=== PATIENT | female | born 1960 | race Caucasian/White ===

== ENCOUNTER → 2016-09-15 | Outpatient (CLI) | payer BC ==
[~2016-09-15] MED LIST: B-121000 MCG PO; GLUCOPHAGE500 MG/TAB PO; NORCO 325 MG-51 TAB PO; TYLENOL 500MG500 MG PO; VITAMIN D31000 IU PO; [UNRECOGNIZED DRUG - CODE] PO
== END ==
LOC: MC.RAD 11:29
DX: Z12.31 Encounter for screening mammogram for malignant neoplasm of breast (principal)

== ENCOUNTER → 2016-09-19 | Outpatient (CLI) | payer BC | LOC: MC.RAD 13:21 | DX: N63 Unspecified lump in breast (principal); N64.59 Other signs and symptoms in breast ==

== ENCOUNTER → 2016-09-22 | Outpatient (CLI) | payer BC | LOC: MC.RAD 12:33 | DX: N63 Unspecified lump in breast (principal) ==

== ENCOUNTER 2016-10-09 06:52 | Day surgery (SDC) | payer BC ==
[~2016-10-09] VITALS: Ht 170.2 cm; Wt 80.6 kg
[~2016-10-09 06:52] MED LIST changes: -GLUCOPHAGE500 MG/TAB PO; -NORCO 325 MG-51 TAB PO; -TYLENOL 500MG500 MG PO
[2016-10-09 08:00] VITALS: BP 153/75; PULSE 64; TEMP 97.6
[2016-10-09] MEDS ORDERED: GLUCOPHAGE500 MG/TAB PO (08:08)
[2016-10-09] MEDS ORDERED: TYLENOL 500MG500 MG PO (08:08)
[2016-10-09 13:13] VITALS: BP 121/63; PULSE 75; TEMP 98
[2016-10-09 13:30] VITALS: BP 119/60; PULSE 69
[2016-10-09] MEDS ORDERED: NORCO 325 MG-51 TAB PO (13:32)
[2016-10-09 13:45] VITALS: BP 113/64; PULSE 60
== END 2016-10-09 14:21 | disposition home or self-care (01) ==
LOC: SDCO 06:52 → MC.RAD 07:00 → SDCO 07:00
DX: N62 Hypertrophy of breast (principal); D24.1 Benign neoplasm of right breast; N60.91 Unspecified benign mammary dysplasia of right breast; R92.0 Mammographic microcalcification found on diagnostic imaging of breast; E11.9 Type 2 diabetes mellitus without complications; E78.5 Hyperlipidemia, unspecified; D64.9 Anemia, unspecified; Z86.718 Personal history of other venous thrombosis and embolism; Z85.820 Personal history of malignant melanoma of skin; Z96.651 Presence of right artificial knee joint; Z80.0 Family history of malignant neoplasm of digestive organs
CPT/HCPCS: J0690; J1100; J2250; J2405; J2704; J3010; J7030

== ENCOUNTER → 2016-12-06 | Outpatient (CLI) | payer BC ==
[~2016-12-06] MED LIST changes: +GLUCOPHAGE500 MG/TAB PO; +NORCO 325 MG-51 TAB PO; +TYLENOL 500MG500 MG PO
== END ==
LOC: SUN.DIA 10:49
DX: E11.9 Type 2 diabetes mellitus without complications (principal); E78.5 Hyperlipidemia, unspecified; E66.9 Obesity, unspecified; Z71.3 Dietary counseling and surveillance
CPT/HCPCS: G0109

== ENCOUNTER → 2016-12-13 | Outpatient (CLI) | payer BC | LOC: SUN.DIA 16:41 | DX: E11.9 Type 2 diabetes mellitus without complications (principal); E78.5 Hyperlipidemia, unspecified; E66.9 Obesity, unspecified; Z71.3 Dietary counseling and surveillance | CPT/HCPCS: G0109 ==

== ENCOUNTER → 2016-12-20 | Outpatient (CLI) | payer BC | LOC: SUN.DIA 12-18 08:33 | DX: E11.9 Type 2 diabetes mellitus without complications (principal); E66.9 Obesity, unspecified; Z68.26 Body mass index [BMI] 26.0-26.9, adult; Z71.3 Dietary counseling and surveillance | CPT/HCPCS: G0108; G0109 ==

== ENCOUNTER → 2016-12-27 | Outpatient (CLI) | payer BC | LOC: SUN.DIA 12:57 | DX: E11.9 Type 2 diabetes mellitus without complications (principal); E66.9 Obesity, unspecified; Z71.3 Dietary counseling and surveillance | CPT/HCPCS: G0109 ==

== ENCOUNTER → 2017-01-03 | Outpatient (CLI) | payer BC | LOC: SUN.DIA 08:41 | DX: E11.9 Type 2 diabetes mellitus without complications (principal); Z68.26 Body mass index [BMI] 26.0-26.9, adult; Z71.3 Dietary counseling and surveillance | CPT/HCPCS: G0108 ==

== ENCOUNTER → 2017-07-05 | Outpatient (CLI) | payer BC | LOC: SUN.DIA 09:33 | DX: E11.9 Type 2 diabetes mellitus without complications (principal); Z68.26 Body mass index [BMI] 26.0-26.9, adult; Z71.3 Dietary counseling and surveillance | CPT/HCPCS: G0108 ==

== ENCOUNTER → 2017-11-06 | Outpatient (CLI) | payer BC | LOC: MC.RAD 11:34 | DX: Z12.31 Encounter for screening mammogram for malignant neoplasm of breast (principal); N64.89 Other specified disorders of breast ==

== ENCOUNTER → 2017-11-09 | Outpatient (CLI) | payer BC | LOC: MC.RAD 07:49 | DX: R92.8 Other abnormal and inconclusive findings on diagnostic imaging of breast (principal) ==

== ENCOUNTER → 2018-05-13 | Outpatient (CLI) | payer BC | LOC: MC.RAD 08:28 | DX: N64.89 Other specified disorders of breast (principal) | CPT/HCPCS: G0279 ==

== ENCOUNTER → 2019-09-10 | Outpatient (CLI) | payer BC | LOC: MC.RAD 17:24 | DX: Z12.31 Encounter for screening mammogram for malignant neoplasm of breast (principal) ==

== ENCOUNTER → 2020-01-19 | Outpatient (CLI) | payer BC | LOC: ZCOL.LAB 16:03 | DX: Z20.828 Contact with and (suspected) exposure to other viral communicable diseases (principal) ==

== ENCOUNTER → 2020-03-16 | Outpatient (CLI) | payer BC | LOC: COL.RAD 03-15 14:15 | DX: R59.0 Localized enlarged lymph nodes (principal); R61 Generalized hyperhidrosis ==

== ENCOUNTER → 2020-04-02 | Outpatient (CLI) | payer BC ==
[~2020-04-02] VITALS: Ht 170.2 cm; Wt 79.0 kg
[~2020-04-02] MED LIST changes: +COZAAR 50MG50 MG/TAB PO; +LIPITOR 10MG10 MG PO
[2020-04-02 11:53] VITALS: BP 142/86; PULSE 78
[2020-04-02 13:15] VITALS: BP 142/92; PULSE 78
== END ==
LOC: COL.RAD 11:16
DX: R59.0 Localized enlarged lymph nodes (principal)

== ENCOUNTER → 2020-10-15 | Outpatient (CLI) | payer BC | LOC: MC.RAD 13:17 | DX: Z12.31 Encounter for screening mammogram for malignant neoplasm of breast (principal) ==

== ENCOUNTER → 2021-10-17 | Outpatient (CLI) | payer BC | LOC: MC.RAD 12:55 | DX: Z12.31 Encounter for screening mammogram for malignant neoplasm of breast (principal) ==

== ENCOUNTER 2023-06-11 05:30 | Day surgery (SDC) | payer BC ==
[2023-06-11] VITALS (14 sets, daily range): BP systolic 108–145; BP diastolic 52–83; PULSE 72–104; TEMP 97–98.5
[~2023-06-11] VITALS: Ht 167.6 cm; Wt 78.5 kg
[~2023-06-11 05:30] MED LIST changes: +LR 1,000 ML IV SCH
[2023-06-11] MEDS ORDERED: PRILOSEC 20MG20 MG PO (06:02)
[2023-06-11] MEDS ORDERED: FARXIGA10 PO (06:02)
[2023-06-11] MEDS ORDERED: VITAMINC1000TA (06:03)
--- NOTE | 2023-06-11 06:39 | NUR ---
0539 Patient ambulatory to [facility] with a steady gait, breathing even and unlabored. Pt is a alert and oriented, accompanied by her . Consents reviewed and signed by patient. IV established. LR infusing via dial a flow. Knee high aleyda hose placed on right leg. Chlorhexidine scrub to left knee. Call light in reach. Warm blanket provided.
[2023-06-11] MEDS ORDERED: NS 10 ML IV ONE (06:54)
[2023-06-11] MEDS ORDERED: Tranexamic Acid 1,000 MG/10 ML VIAL ONE (06:54)
[2023-06-11] MEDS ORDERED: Midazolam 2 MG/2 ML VIAL ONE (06:54)
[2023-06-11] MEDS ORDERED: dexAMETHasone 10 MG/ML VIAL ONE (06:54)
[2023-06-11] MEDS ORDERED: HYDROmorphone 2 MG/1 ML VIAL IV PRN (08:00)
[2023-06-11] MEDS ORDERED: Ondansetron 4 MG/2 ML VIAL IV PRN ×2 (08:00→09:45)
[2023-06-11] MEDS ORDERED: fentaNYL 50 MCG/ML 2 ML VIAL IV PRN (08:00)
[2023-06-11] MEDS ORDERED: hydrALAZINE 20 MG/ML 1 ML VIAL IV PRN (08:00)
[2023-06-11] MEDS ORDERED: droPERidol 2.5 MG/ML 2 ML VIAL IV PRN (08:00)
[2023-06-11] MEDS ORDERED: Thrombin Human (Recombinant) 5,000 UNITS VIAL TP ONE (08:17)
[2023-06-11] MEDS ORDERED: Naloxone 0.4 MG/ML VIAL IV PRN (09:45)
[2023-06-11] MEDS ORDERED: Acetaminophen 500 MG TAB PO PRN (09:45)
[2023-06-11] MEDS ORDERED: Magnes Hydrox (MOM) 80 MG/ML 30 ML CUP PO PRN (09:45)
[2023-06-11] MEDS ORDERED: Bisacodyl 5 MG TAB PO PRN (09:45)
[2023-06-11] MEDS ORDERED: Morphine 4 MG/ML VIAL IV PRN (09:45)
[2023-06-11] MEDS ORDERED: Mag/Al Hydrox/Simeth Susp 30 ML CUP PO PRN (09:45)
[2023-06-11] MEDS ORDERED: NS 1,000 ML IV SCH (09:45)
[2023-06-11] MEDS ORDERED: oxyCODONE 5 MG TAB PO PRN ×2 (09:45)
--- NOTE | 2023-06-11 10:42 | NUR ---
Patient received post op from [place]. Patient alert and oriented. Her spouse at bedside. Patient Vss on room air. Nerve block working well, she denies pain, but is numb. Unable to feel touch or move foot or leg. Left knee dressing is CDI. Hemovac to compression. Scds. Ivf as ordered. Will monitor closely
[2023-06-11] MEDS ORDERED: Dextrose 50% Water 25 GM/50 ML SYRINGE IV PRN (11:45)
[2023-06-11] MEDS ORDERED: Glucagon 1 MG VIAL IM PRN (11:45)
[2023-06-11] MEDS ORDERED: Dextrose (Glucose) 15 GM (4 x 3.75 GM) Chewable TABLET PACK PO PRN (11:45)
[2023-06-11] MEDS ORDERED: Insulin Lispro (HumaLOG) SQ SCH (12:00)
[2023-06-11] MEDS ORDERED: Acetaminophen 500 MG TAB PO SCH (12:00)
--- NOTE | 2023-06-11 12:28 | NUR ---
Patient sitting up in bed, she did well with lunch. Patient reports starting to feel tingling in her leg. Vss. Dressing CDI. WIll monitor
[2023-06-11] MEDS ORDERED: ceFAZolin 1 G in Water For Injection,Sterile 10 ML IV SCH (15:00)
[2023-06-11] MEDS ORDERED: Cholecalciferol (Vit D3) 1000 Units TAB PO SCH (19:00)
--- NOTE | 2023-06-11 19:18 | NUR ---
report received from kurnal vann. pt resting in bed on the phone with friends. pt denies pain at this time. call light in reach. all needs met at this time.
--- NOTE | 2023-06-11 19:24 | NUR ---
Patient doing well this evening. Tylenol and roxicodne managing pain. Nerve block has worn off and patient able to work with therapy & up to the bathroom voiding without problem one assist with walker and gaitbelt. Tolerated dinner. Left knee dressing CDI. Hemovac to compression. Scds. [facility]i [facility] RLE. [facility]
[2023-06-11] MEDS ORDERED: Apixaban 2.5 MG TAB PO SCH (21:00)
[2023-06-11] MEDS ORDERED: Atorvastatin 10 MG TAB PO SCH (21:00)
[2023-06-11] MEDS ORDERED: Celecoxib 200 MG CAP PO SCH (21:00)
[2023-06-11] MEDS ORDERED: Ascorbic Acid 500 MG TAB PO SCH (21:00)
[2023-06-11] MEDS ORDERED: Sennosides/Docusate 8.6-50 MG TAB PO SCH (21:00)
--- NOTE | 2023-06-11 21:00 | NUR ---
shift assessment complete, see documentation. pt tolerated hs meds well. pt reporting scheduled tylenol is controlling her pain for now. pt amb to bathroom utilizing gait belt and walker. pt did well with sba. pt now resting in bed. call light in reach. all needs met at this time.
[2023-06-12] VITALS (8 sets, daily range): BP systolic 133–145; BP diastolic 71–82; PULSE 82–98; TEMP 98.1–98.5
[2023-06-12 06:12] LABS: HEMOGLOBIN 10.1 g/dl (12.5-16.0)
[2023-06-12 06:23] LABS: HEMATOCRIT 32.5 % (37.0-47.0)
[2023-06-12 06:29] LABS: CALCIUM 8.3 mg/dL (8.4-10.2)
[2023-06-12] MEDS ORDERED: Omeprazole 20 MG **** subs to Pantoprazole 40 MG PO SCH (07:00)
[2023-06-12] MEDS ORDERED: Magnes Hydrox (MOM) 80 MG/ML 30 ML CUP PO SCH (09:00)
--- NOTE | 2023-06-12 10:30 | NUR ---
ditch worker met with patient to discuss discharge planning. Patient lives in [place] with her , Marcus, Lalo# [phone]. PCP is Dr. Crowley. [facility] is [facility]. No issues affording medications. No DPOA-HC and is not interested in completing one at this time. DME is a CPAP, walker and cane. Patient reports to be independent with ADLS and is able to transport herself to and from appointments. Patient would like to return home with outpatient PT at [facility]. Discharge plan: Home with outpatient PT
--- NOTE | 2023-06-12 10:39 | NUR ---
humidifier maintenance worker contacted [facility] [address] and confirmed patient is scheduled for outpatient PT on Sunday at 3 pm. SW notified the [facility] manager to update her discharge papers when she is ready for discharge.
--- NOTE | 2023-06-12 11:03 | NUR ---
Hemovac discontinued per doctors orders with pt teaching provided. Output 70mls of dark red blood. No drainage, swelling, or redness noted to site. Pt tolerated well with no further questions. Dressings changed with foot left elevated on pillow.
--- NOTE | 2023-06-12 12:19 | NUR ---
D: Initial visit: Hemstitching Machine Operator stopped by room on rounds. Pt was resting and content. A: Pt has no needs right now. P: Hemstitching Machine Operator informed pt that if she needed anything from the assistant foreman area to let her nurse know. Hemstitching Machine Operator will follow up as needed.
[2023-06-12] MEDS ORDERED: ROXICODONE 55 MG/TAB PO (14:11)
[2023-06-12] MEDS ORDERED: CEPHALEXIN500 M1 PO (14:12)
[2023-06-12] MEDS ORDERED: ELIQUIS 2.5 PO (14:12)
--- NOTE | 2023-06-12 15:02 | NUR ---
DISCHARGE INSTRUCTIONS REVIEWED WITH PT AND SPOUSE. QUESTIONS SOLICITED AND ANSWERED. PT LEFT UNIT PER WHEEL CHAIR WITH STAFF.
== END 2023-06-12 15:41 | disposition home or self-care (01) ==
LOC: SDCO 05:30 → SURG 10:13 → SDCO 06-12 15:41
PROVIDERS: Physician Assistant
DX: M17.32 Unilateral post-traumatic osteoarthritis, left knee (principal); S82.142S Displaced bicondylar fracture of left tibia, sequela; X58.XXXS Exposure to other specified factors, sequela; E11.9 Type 2 diabetes mellitus without complications; I10 Essential (primary) hypertension; E78.5 Hyperlipidemia, unspecified; G47.33 Obstructive sleep apnea (adult) (pediatric); K21.9 Gastro-esophageal reflux disease without esophagitis; C76.0 Malignant neoplasm of head, face and neck; Z79.899 Other long term (current) drug therapy; Z79.84 Long term (current) use of oral hypoglycemic drugs; Z85.528 Personal history of other malignant neoplasm of kidney
CPT/HCPCS: OP; A9284; C1713; C1776; J0665; J0690; J1100; J1580; J1815; J2250; J2704; J2795; J7120

== ENCOUNTER 2023-06-22 09:00 | Outpatient (RCR) | payer BC ==
[~2023-06-22 09:00] MED LIST changes: +CEPHALEXIN500 M1 PO; +ELIQUIS 2.5 PO; +FARXIGA10 PO; -LR 1,000 ML IV SCH; +PRILOSEC 20MG20 MG PO; +ROXICODONE 55 MG/TAB PO; +VITAMINC1000TA
== END 2023-06-24 ==
LOC: WSPT
DX: M17.12 Unilateral primary osteoarthritis, left knee (principal); Z96.652 Presence of left artificial knee joint

== ENCOUNTER → 2023-11-27 | Outpatient (CLI) | payer BC | LOC: MC.RAD 08:46 | DX: Z12.31 Encounter for screening mammogram for malignant neoplasm of breast (principal) ==